=== PATIENT | female | born 1940 | race Caucasian/White ===

== ENCOUNTER 2016-04-16 13:12 | Emergency (ER) | payer MEDICARE, OTHER ==
[~2016-04-16] VITALS: Ht 160 cm; Wt 100.0 kg
[~2016-04-16 13:12] MED LIST: AMOX250C4 PO; ARIP5TAB9 PO; ASPI-1061 PO; CALC-15 PO; CARV6 PO; DIVA250T45 PO; DSS100 PO; LEVO150 PO; OXYB5 PO; PANT40TA25 PO; SIMV-259 PO; THERAGRAN M1 TA1 PO; XALA2.5OS OU
[2016-04-16 14:45] LABS: GLUCOSE, URINE (UA) NEGATIVE (NEGATIVE); KETONES,URINE NEGATIVE (NEGATIVE); LEUKOCYTE ESTERASE ,URINE LARGE (NEGATIVE); OCCULT BLOOD,URINE TRACE (NEGATIVE); PH,URINE 5.5 (5.0-8.0); PROTEIN,URINE NEGATIVE (NEGATIVE)
[2016-04-16 14:54] LABS: APPEARANCE,URINE HAZY (CLEAR)
[2016-04-16 14:55] LABS: RBC,URINE 0-2 /HPF (0-2)
[2016-04-16 14:56] LABS: SQUAMOUS EPITHELIAL CELL,UR Rare /LPF (None Seen)
[2016-04-16 14:58] LABS: BASOPHILS % (AUTO) 0.7 % (0.0-2.0); EOSINOPHILS % (AUTO) 2.1 % (1.0-6.0); HEMATOCRIT 31.2 % (36-46); HEMOGLOBIN 10.7 g/dL (12.0-16.0); LYMPHOCYTES # (AUTO) 1.9 K/uL (1.0-4.8); LYMPHOCYTES % (AUTO) 34.5 % (22.0-44.0); MEAN CORPUSCULAR HEMOGLOBIN 29.7 pg (26.0-34.0); MEAN CORPUSCULAR HGB CONC 34.2 G/dL (31.0-37.0); MEAN CORPUSCULAR VOLUME 87 fL (80-100); MONOCYTES # (AUTO) 0.4 K/uL (0.1-1.0); MONOCYTES % (AUTO) 7.9 % (2.0-9.0); NEUTROPHILS % (AUTO) 54.8 % (40.0-70.0); RED BLOOD CELL COUNT(AUTO) 3.59 MIL/uL (4.00-5.20); RED CELL DISTRIBUTION WIDTH 15.7 % (11.5-14.5); WHITE BLOOD COUNT (AUTO) 5.5 K/uL (4.5-11.0)
[2016-04-16 15:11] LABS: CALCIUM, TOTAL 9.5 mg/dL (8.8-10.5); CREATININE 1.44 mg/dL (0.60-1.30); POTASSIUM 3.8 mmol/L (3.5-5.1)
[2016-04-16 15:14] LABS: BILIRUBIN,TOTAL 0.3 mg/dL (0.1-1.0); TOTAL PROTEIN, SERUM 7.5 g/dL (6.4-8.2)
[2016-04-16 15:20] LABS: PLATELET COUNT (AUTO) 120 K/uL (150-450); RBC MORPHOLOGY COMMENT NORMAL RBC MORPH
[2016-04-16] MEDS ORDERED: CefTRIAXone 1 GM/DEXTROSE 50 ML IV ONE (16:15)
[2016-04-16 18:58] VITALS: BP 150/73
== END 2016-04-16 19:46 | disposition home or self-care (01) ==
LOC: EMS 13:14
DX: N39.0 Urinary tract infection, site not specified (principal); K21.9 Gastro-esophageal reflux disease without esophagitis; E78.00 Pure hypercholesterolemia, unspecified; I10 Essential (primary) hypertension; Z79.82 Long term (current) use of aspirin
CPT/HCPCS: 36415; 80053; 81001; 83690; 84484; 85025; 87077; 87086; 87186; 96365; 99284; J0696

== ENCOUNTER → 2016-06-06 | Outpatient (CLI) | payer MEDICARE, OTHER ==
[~2016-06-06] MED LIST changes: -SIMV-259 PO; +SIMV10 PO
== END | disposition home or self-care (01) ==
LOC: RADMN 13:32
PROVIDERS: ATTEND Internal Medicine Geriatric Medicine
DX: F01.50 Vascular dementia, unspecified severity, without behavioral disturbance, psychotic disturbance, mood disturbance, and anxiety (principal); Z86.73 Personal history of transient ischemic attack (TIA), and cerebral infarction without residual deficits
CPT/HCPCS: 70450

== ENCOUNTER → 2017-02-06 | Outpatient (CLI) | payer MEDICARE, OTHER ==
[~2017-02-06] MED LIST changes: +ARIP5TAB8 PO; -ARIP5TAB9 PO; -ASPI-1061 PO; +ASPI81TA33 PO; +SIMV-259 PO; -SIMV10 PO
[2017-02-06 13:58] LABS: BASOPHILS # (AUTO) 0.01 K/uL (0.00-0.20); BASOPHILS % (AUTO) 0.3 % (0.0-2.0); EOSINOPHILS # (AUTO) 0.14 K/uL (0.00-0.70); EOSINOPHILS % (AUTO) 3.03 % (1.0-6.0); HEMOGLOBIN 11.4 g/dL (12.0-16.0); LYMPHOCYTES # (AUTO) 1.8 K/uL (1.0-4.8); LYMPHOCYTES % (AUTO) 39.9 % (22.0-44.0); MEAN CORPUSCULAR HEMOGLOBIN 29.8 pg (26.0-34.0); MEAN CORPUSCULAR HGB CONC 33.6 G/dL (31.0-37.0); MEAN CORPUSCULAR VOLUME 89 fL (80-100); MONOCYTES # (AUTO) 0.3 K/uL (0.1-1.0); NEUTROPHILS # (AUTO) 2.3 K/uL (1.8-7.7); NEUTROPHILS % (AUTO) 50.9 % (40.0-70.0); PLATELET COUNT (AUTO) 153 K/uL (150-450); RED BLOOD CELL COUNT(AUTO) 3.83 MIL/uL (4.00-5.20); RED CELL DISTRIBUTION WIDTH 16.1 % (11.5-14.5); WHITE BLOOD COUNT (AUTO) 4.6 K/uL (4.5-11.0)
[2017-02-06 14:23] LABS: BILIRUBIN,TOTAL 0.5 mg/dL (0.1-1.0); CALCIUM, TOTAL 9.4 mg/dL (8.8-10.5); CREATININE 1.32 mg/dL (0.60-1.30); POTASSIUM 4.4 mmol/L (3.5-5.1); THYROID STIMULATING HORMONE 1.32 uIU/mL (0.36-3.74)
[2017-02-06 14:36] LABS: HEMOGLOBIN A1C 4.5 % (4.5-6.2)
== END | disposition home or self-care (01) ==
LOC: LABPV 11:07
PROVIDERS: ATTEND Internal Medicine Geriatric Medicine
DX: I63.9 Cerebral infarction, unspecified (principal); E03.9 Hypothyroidism, unspecified; R73.9 Hyperglycemia, unspecified; R26.9 Unspecified abnormalities of gait and mobility
CPT/HCPCS: 83036; 84439; 84443

== ENCOUNTER 2017-06-15 12:13 | Inpatient (IN) | payer MEDICARE, MEDICAID ==
[~2017-06-15] VITALS: Ht 160 cm; Wt 65.3 kg
[~2017-06-15 12:13] MED LIST changes: -ASPI81TA33 PO; +ASPI81TA87 PO
[2017-06-15] MEDS ORDERED: CELE100 PO (14:13)
[2017-06-15] MEDS ORDERED: FURO20 PO (14:14)
[2017-06-15 14:15] LABS: BASOPHILS % (AUTO) 0.5 % (0.0-2.0); EOSINOPHILS % (AUTO) 1.8 % (1.0-6.0); HEMATOCRIT 35.1 % (36-46); HEMOGLOBIN 11.9 g/dL (12.0-16.0); LYMPHOCYTES # (AUTO) 1.9 K/uL (1.0-4.8); LYMPHOCYTES % (AUTO) 32.7 % (22.0-44.0); MEAN CORPUSCULAR HEMOGLOBIN 28.9 pg (26.0-34.0); MEAN CORPUSCULAR HGB CONC 33.9 G/dL (31.0-37.0); MEAN CORPUSCULAR VOLUME 85 fL (80-100); MONOCYTES # (AUTO) 0.5 K/uL (0.1-1.0); MONOCYTES % (AUTO) 8.2 % (2.0-9.0); NEUTROPHILS # (AUTO) 3.4 K/uL (1.8-7.7); NEUTROPHILS % (AUTO) 56.8 % (40.0-70.0); PLATELET COUNT (AUTO) 139 K/uL (150-450); RED BLOOD CELL COUNT(AUTO) 4.11 MIL/uL (4.00-5.20)
[2017-06-15 14:28] LABS: ANION GAP 9 mmol/L (8-16); CALCIUM, TOTAL 9.5 mg/dL (8.8-10.5); CARBON DIOXIDE 30 mmol/L (22-29); CHLORIDE 107 mmol/L (98-107); CREATININE 1.58 mg/dL (0.60-1.30); GLOMERULAR FILTR. RATE CALC 32 mL/min (>60); GLUCOSE,RANDOM 64 mg/dL (70-110); SODIUM SERUM 146 mmol/L (136-145); UREA NITROGEN, BLOOD 30 mg/dL (7-18)
[2017-06-15 14:34] LABS: ALANINE AMINOTRANSFERASE 18 U/L (12-78); ALBUMIN 3.2 g/dL (3.4-5.0); ALKALINE PHOSPHATASE 66 U/L (46-116); ASPARTATE AMINOTRANSFERASE 17 U/L (15-37); BILIRUBIN,TOTAL 0.5 mg/dL (0.1-1.0); TOTAL PROTEIN, SERUM 8.1 g/dL (6.4-8.2); VALPROIC ACID 54 mcg/mL (50-100)
[2017-06-15 14:43] LABS: AMPHET/METH SCREEN,URINE NEGATIVE (NEGATIVE); BARBITURATE SCREEN, URINE NEGATIVE (NEGATIVE); BENZODIAZEPINES SCREEN,URINE NEGATIVE (NEGATIVE); CANNABINOID SCREEN,URINE NEGATIVE (NEGATIVE); COCAINE SCREEN,URINE NEGATIVE (NEGATIVE); METHADONE SCREEN, URINE NEGATIVE (NEGATIVE); OPIATE SCREEN,URINE NEGATIVE (NEGATIVE)
[2017-06-15 14:45] LABS: PHENCYCLIDINE SCREEN,URINE NEGATIVE (NEGATIVE)
[2017-06-15] MEDS ORDERED: HALOPERIDOL 5 MG TABLET PO PRN (16:15)
[2017-06-15] MEDS ORDERED: LORazepam 1 MG TABLET PO PRN (16:15)
[2017-06-15] MEDS ORDERED: ZOLPIDEM TARTRATE 10 MG TABLET PO PRN (16:15)
[2017-06-15] MEDS ORDERED: INFLUENZA VIRUS VACCINE QVS 2017-18 (3YR+)/PF 60 MCG/0.5 ML SYRINGE IM ONE (18:15)
[2017-06-15] MEDS ORDERED: PNEUMOCOCCAL VACCINE POLYVALENT 0.5 ML VIAL [PPSV23] IM ONE (18:15)
[2017-06-15 19:02] VITALS: BP 148/60
[2017-06-15] MEDS: SIMVASTATIN 10 MG TABLET PO SCH (21:00)
[2017-06-15] MEDS: LATANOPROST 0.005% 2.5 ML OPHTHALMIC SOLUTION OU SCH (21:00)
[2017-06-16 01:36] VITALS: BP 134/101
[2017-06-16] MEDS: LEVOTHYROXINE SODIUM 150 MCG TABLET PO SCH (06:01)
[2017-06-16 06:34] LABS: CHOL/HDL RATIO 2.9 (3.9-5.7)
[2017-06-16 08:00] VITALS: BP 118/71
[2017-06-16] MEDS: CALCIUM OYSTER SHELL 500 MG TABLET PO SCH (08:06)
[2017-06-16] MEDS: OXYBUTYNIN CHLORIDE 5 MG TABLET PO SCH (08:06)
[2017-06-16] MEDS: ASPIRIN 81 MG EC TABLET PO SCH (08:06)
[2017-06-16] MEDS: CARVEDILOL 6.25 MG TABLET PO SCH ×2 (08:06→16:24)
[2017-06-16] MEDS: FUROSEMIDE 20 MG TABLET PO SCH ×2 (08:06→16:24)
[2017-06-16] MEDS: PANTOPRAZOLE SODIUM 40 MG DR TABLET PO SCH (08:07)
[2017-06-16] MEDS: CELECOXIB 100 MG CAPSULE PO SCH ×2 (08:07→16:24)
[2017-06-16] MEDS: MULTIVITAMINS WITH MINERALS, THERAPEUTIC TABLET PO SCH (08:07)
[2017-06-16] MEDS: DOCUSATE SODIUM 100 MG CAPSULE PO SCH ×2 (08:08→16:24)
[2017-06-16] MEDS: MAALOX/LIDOCAINE/NYSTATIN SUSP 5 ML ORAL.SYG PO SCH (12:15)
[2017-06-16] MEDS: RisperiDONE 0.5 MG TABLET PO SCH (16:28)
[2017-06-16] MEDS: LATANOPROST 0.005% 2.5 ML OPHTHALMIC SOLUTION OU SCH (20:03)
[2017-06-16] MEDS: SIMVASTATIN 10 MG TABLET PO SCH (20:03)
[2017-06-16] MEDS ORDERED: DONEPEZIL HCL 5 MG TABLET PO SCH (21:00)
[2017-06-16 23:40] VITALS: BP 129/79
[2017-06-17 06:20] VITALS: BP 140/71
[2017-06-17] MEDS: LEVOTHYROXINE SODIUM 150 MCG TABLET PO SCH (06:41)
[2017-06-17 08:00] VITALS: BP 138/95
[2017-06-17] MEDS ORDERED: ONDANSETRON HCL 4 MG TABLET PO PRN (09:30)
[2017-06-17] MEDS: CARVEDILOL 6.25 MG TABLET PO SCH ×2 (09:32→16:42)
[2017-06-17] MEDS: CELECOXIB 100 MG CAPSULE PO SCH ×2 (09:32→16:41)
[2017-06-17] MEDS: DOCUSATE SODIUM 100 MG CAPSULE PO SCH ×2 (09:32→16:40)
[2017-06-17] MEDS: OXYBUTYNIN CHLORIDE 5 MG TABLET PO SCH (09:33)
[2017-06-17] MEDS: FUROSEMIDE 20 MG TABLET PO SCH ×2 (09:33→16:42)
[2017-06-17] MEDS: PANTOPRAZOLE SODIUM 40 MG DR TABLET PO SCH (09:33)
[2017-06-17] MEDS: ASPIRIN 81 MG EC TABLET PO SCH (09:33)
[2017-06-17] MEDS: MULTIVITAMINS WITH MINERALS, THERAPEUTIC TABLET PO SCH (09:33)
[2017-06-17] MEDS: RisperiDONE 0.5 MG TABLET PO SCH ×2 (09:33→16:42)
[2017-06-17] MEDS: CALCIUM OYSTER SHELL 500 MG TABLET PO SCH (09:33)
[2017-06-17] MEDS: MAALOX/LIDOCAINE/NYSTATIN SUSP 5 ML ORAL.SYG PO SCH (09:34)
[2017-06-17 10:42] LABS: VITAMIN B12 LEVEL 1866 pg/mL (211-911)
[2017-06-17 10:47] LABS: FOLATE SERUM > 24.0 ng/mL (5.4-)
[2017-06-17] MEDS: SIMVASTATIN 10 MG TABLET PO SCH (20:35)
[2017-06-17] MEDS: LATANOPROST 0.005% 2.5 ML OPHTHALMIC SOLUTION OU SCH (20:36)
[2017-06-17] MEDS: DONEPEZIL HCL 10 MG TABLET PO SCH (20:36)
[2017-06-17 23:37] VITALS: BP 109/74
[2017-06-18] MEDS: LEVOTHYROXINE SODIUM 150 MCG TABLET PO SCH (06:47)
[2017-06-18] MEDS: DOCUSATE SODIUM 100 MG CAPSULE PO SCH ×2 (08:30→17:00)
[2017-06-18] MEDS: MULTIVITAMINS WITH MINERALS, THERAPEUTIC TABLET PO SCH (08:30)
[2017-06-18] MEDS: CARVEDILOL 6.25 MG TABLET PO SCH ×2 (08:31→17:00)
[2017-06-18] MEDS: CELECOXIB 100 MG CAPSULE PO SCH ×2 (08:31→17:00)
[2017-06-18] MEDS: PANTOPRAZOLE SODIUM 40 MG DR TABLET PO SCH (08:31)
[2017-06-18] MEDS: OXYBUTYNIN CHLORIDE 5 MG TABLET PO SCH (08:32)
[2017-06-18] MEDS: FUROSEMIDE 20 MG TABLET PO SCH ×2 (08:32→17:00)
[2017-06-18] MEDS: CALCIUM OYSTER SHELL 500 MG TABLET PO SCH (08:33)
[2017-06-18] MEDS: ASPIRIN 81 MG EC TABLET PO SCH (08:33)
[2017-06-18] MEDS: MAALOX/LIDOCAINE/NYSTATIN SUSP 5 ML ORAL.SYG PO SCH (08:34)
[2017-06-18] MEDS: RisperiDONE 0.5 MG TABLET PO SCH ×2 (08:37→17:00)
[2017-06-18 08:40] VITALS: BP 125/93
[2017-06-18 17:30] VITALS: BP 128/92
[2017-06-18] MEDS: DONEPEZIL HCL 10 MG TABLET PO SCH ×2 (20:03→20:08)
[2017-06-18] MEDS: SIMVASTATIN 10 MG TABLET PO SCH (20:03)
[2017-06-18] MEDS: LATANOPROST 0.005% 2.5 ML OPHTHALMIC SOLUTION OU SCH ×2 (20:03→20:08)
[2017-06-19] MEDS: LEVOTHYROXINE SODIUM 150 MCG TABLET PO SCH (07:01)
[2017-06-19 08:15] VITALS: BP 149/97
[2017-06-19 09:00] LABS: CREATININE 1.75 mg/dL (0.60-1.30); FREE T4 (FREE THYROXINE) 1.35 ng/dL (0.76-1.46); POTASSIUM 3.4 mmol/L (3.5-5.1)
[2017-06-19] MEDS: PANTOPRAZOLE SODIUM 40 MG DR TABLET PO SCH (09:00)
[2017-06-19] MEDS: CALCIUM OYSTER SHELL 500 MG TABLET PO SCH (09:00)
[2017-06-19] MEDS: MULTIVITAMINS WITH MINERALS, THERAPEUTIC TABLET PO SCH (09:00)
[2017-06-19] MEDS: ASPIRIN 81 MG EC TABLET PO SCH (09:00)
[2017-06-19] MEDS: RisperiDONE 0.5 MG TABLET PO SCH ×2 (09:00→16:11)
[2017-06-19] MEDS: OXYBUTYNIN CHLORIDE 5 MG TABLET PO SCH (09:00)
[2017-06-19] MEDS: CELECOXIB 100 MG CAPSULE PO SCH ×2 (09:00→16:12)
[2017-06-19] MEDS: MAALOX/LIDOCAINE/NYSTATIN SUSP 5 ML ORAL.SYG PO SCH (09:00)
[2017-06-19] MEDS: DOCUSATE SODIUM 100 MG CAPSULE PO SCH ×2 (09:00→16:11)
[2017-06-19] MEDS: CARVEDILOL 6.25 MG TABLET PO SCH ×2 (09:00→16:11)
[2017-06-19] MEDS: FUROSEMIDE 20 MG TABLET PO SCH ×2 (09:00→16:11)
[2017-06-19] MEDS ORDERED: POTASSIUM CHLORIDE 10 MEQ ER TABLET PO ONE (14:15)
[2017-06-19 17:00] VITALS: BP 161/98
[2017-06-19] MEDS ORDERED: POTASSIUM CHLORIDE 20 MEQ ER TABLET PO ONE (18:45)
[2017-06-20 02:34] VITALS: BP 139/61
[2017-06-20] MEDS: LEVOTHYROXINE SODIUM 150 MCG TABLET PO SCH (06:54)
[2017-06-20] MEDS: PANTOPRAZOLE SODIUM 40 MG DR TABLET PO SCH ×2 (08:38→09:00)
[2017-06-20] MEDS: MULTIVITAMINS WITH MINERALS, THERAPEUTIC TABLET PO SCH ×2 (08:38→09:00)
[2017-06-20] MEDS: DOCUSATE SODIUM 100 MG CAPSULE PO SCH ×2 (08:38→17:00)
[2017-06-20] MEDS: CALCIUM OYSTER SHELL 500 MG TABLET PO SCH ×2 (08:39→09:00)
[2017-06-20] MEDS: CARVEDILOL 6.25 MG TABLET PO SCH ×3 (08:39→17:00)
[2017-06-20] MEDS: FUROSEMIDE 20 MG TABLET PO SCH ×3 (08:39→17:00)
[2017-06-20] MEDS: RisperiDONE 0.5 MG TABLET PO SCH ×3 (08:39→17:00)
[2017-06-20] MEDS: OXYBUTYNIN CHLORIDE 5 MG TABLET PO SCH ×2 (08:39→09:00)
[2017-06-20] MEDS: CELECOXIB 100 MG CAPSULE PO SCH ×3 (08:40→17:00)
[2017-06-20] MEDS: ASPIRIN 81 MG EC TABLET PO SCH ×2 (08:41→09:00)
[2017-06-20] MEDS: MAALOX/LIDOCAINE/NYSTATIN SUSP 5 ML ORAL.SYG PO SCH ×2 (08:42→09:00)
[2017-06-20] MEDS: LATANOPROST 0.005% 2.5 ML OPHTHALMIC SOLUTION OU SCH (20:44)
[2017-06-20] MEDS: SIMVASTATIN 10 MG TABLET PO SCH (20:49)
[2017-06-20] MEDS: DONEPEZIL HCL 10 MG TABLET PO SCH (20:49)
[2017-06-21] MEDS: LEVOTHYROXINE SODIUM 150 MCG TABLET PO SCH (06:57)
[2017-06-21] MEDS: DOCUSATE SODIUM 100 MG CAPSULE PO SCH ×2 (08:24→16:33)
[2017-06-21] MEDS: PANTOPRAZOLE SODIUM 40 MG DR TABLET PO SCH (08:24)
[2017-06-21] MEDS: OXYBUTYNIN CHLORIDE 5 MG TABLET PO SCH (08:24)
[2017-06-21] MEDS: MULTIVITAMINS WITH MINERALS, THERAPEUTIC TABLET PO SCH (08:24)
[2017-06-21] MEDS: CALCIUM OYSTER SHELL 500 MG TABLET PO SCH (08:24)
[2017-06-21] MEDS: CELECOXIB 100 MG CAPSULE PO SCH ×2 (08:25→16:31)
[2017-06-21] MEDS: FUROSEMIDE 20 MG TABLET PO SCH ×2 (08:25→16:31)
[2017-06-21] MEDS: RisperiDONE 0.5 MG TABLET PO SCH ×2 (08:25→16:31)
[2017-06-21] MEDS: CARVEDILOL 6.25 MG TABLET PO SCH ×2 (08:25→16:31)
[2017-06-21] MEDS: ASPIRIN 81 MG EC TABLET PO SCH (08:25)
[2017-06-21] MEDS: MAALOX/LIDOCAINE/NYSTATIN SUSP 5 ML ORAL.SYG PO SCH (09:13)
[2017-06-21 09:58] VITALS: BP 157/76
[2017-06-21 17:23] VITALS: BP 147/72
[2017-06-21] MEDS: DONEPEZIL HCL 10 MG TABLET PO SCH (20:11)
[2017-06-21] MEDS: LATANOPROST 0.005% 2.5 ML OPHTHALMIC SOLUTION OU SCH (20:11)
[2017-06-21] MEDS: SIMVASTATIN 10 MG TABLET PO SCH (20:11)
[2017-06-22] MEDS: LEVOTHYROXINE SODIUM 150 MCG TABLET PO SCH ×2 (06:32→06:52)
[2017-06-22 08:35] VITALS: BP 148/87
[2017-06-22] MEDS: PANTOPRAZOLE SODIUM 40 MG DR TABLET PO SCH (09:51)
[2017-06-22] MEDS: MULTIVITAMINS WITH MINERALS, THERAPEUTIC TABLET PO SCH (09:51)
[2017-06-22] MEDS: OXYBUTYNIN CHLORIDE 5 MG TABLET PO SCH (09:51)
[2017-06-22] MEDS: CELECOXIB 100 MG CAPSULE PO SCH ×2 (09:53→17:00)
[2017-06-22] MEDS: RisperiDONE 0.5 MG TABLET PO SCH ×2 (09:54→17:00)
[2017-06-22] MEDS: DOCUSATE SODIUM 100 MG CAPSULE PO SCH ×2 (09:54→17:00)
[2017-06-22] MEDS: FUROSEMIDE 20 MG TABLET PO SCH ×2 (09:54→17:00)
[2017-06-22] MEDS: ASPIRIN 81 MG EC TABLET PO SCH (09:54)
[2017-06-22] MEDS: CALCIUM OYSTER SHELL 500 MG TABLET PO SCH (09:54)
[2017-06-22] MEDS: CARVEDILOL 6.25 MG TABLET PO SCH ×2 (09:57→17:00)
[2017-06-22] MEDS: SERTRALINE HCL 50 MG TABLET PO SCH (09:58)
[2017-06-22] MEDS: MAALOX/LIDOCAINE/NYSTATIN SUSP 5 ML ORAL.SYG PO SCH (09:59)
[2017-06-22] MEDS ORDERED: DSS100 PO (16:25)
[2017-06-22] MEDS ORDERED: CARV6 PO (16:26)
[2017-06-22] MEDS ORDERED: FURO20 PO (16:26)
[2017-06-22] MEDS ORDERED: XALA2.5OS OU (16:28)
[2017-06-22] MEDS ORDERED: DONE10TA8 PO (16:29)
[2017-06-22] MEDS ORDERED: SIMV-259 PO (16:29)
[2017-06-22] MEDS ORDERED: LEVO150 PO (16:30)
[2017-06-22] MEDS ORDERED: OXYB5 PO (16:31)
[2017-06-22] MEDS ORDERED: ASPI-1146 PO (16:32)
[2017-06-22] MEDS ORDERED: PANT40TA25 PO (16:34)
[2017-06-22] MEDS ORDERED: OS500 PO (16:34)
[2017-06-22] MEDS ORDERED: MULT-1239 PO (16:35)
[2017-06-22] MEDS ORDERED: CELE100 PO (16:36)
[2017-06-22] MEDS ORDERED: MAGIC5L PO (16:36)
[2017-06-22] MEDS ORDERED: SERT50TA12 PO (16:48)
[2017-06-22] MEDS ORDERED: RISP.5 PO (16:49)
[2017-06-22 18:21] VITALS: BP 151/82
[2017-06-22] MEDS: DONEPEZIL HCL 10 MG TABLET PO SCH (21:00)
[2017-06-22] MEDS: SIMVASTATIN 10 MG TABLET PO SCH (21:00)
[2017-06-22] MEDS: LATANOPROST 0.005% 2.5 ML OPHTHALMIC SOLUTION OU SCH (21:00)
[2017-06-23 01:00] VITALS: BP 124/93
[2017-06-23] MEDS: LEVOTHYROXINE SODIUM 150 MCG TABLET PO SCH (07:00)
[2017-06-23] MEDS: CARVEDILOL 6.25 MG TABLET PO SCH ×2 (09:00→17:00)
[2017-06-23] MEDS: DOCUSATE SODIUM 100 MG CAPSULE PO SCH ×2 (09:00→17:00)
[2017-06-23] MEDS: RisperiDONE 0.5 MG TABLET PO SCH ×2 (09:00→17:00)
[2017-06-23] MEDS: PANTOPRAZOLE SODIUM 40 MG DR TABLET PO SCH (09:00)
[2017-06-23] MEDS: ASPIRIN 81 MG EC TABLET PO SCH (09:00)
[2017-06-23] MEDS: OXYBUTYNIN CHLORIDE 5 MG TABLET PO SCH (09:00)
[2017-06-23] MEDS: SERTRALINE HCL 50 MG TABLET PO SCH (09:00)
[2017-06-23] MEDS: MULTIVITAMINS WITH MINERALS, THERAPEUTIC TABLET PO SCH (09:00)
[2017-06-23] MEDS: CELECOXIB 100 MG CAPSULE PO SCH ×2 (09:00→17:00)
[2017-06-23] MEDS: FUROSEMIDE 20 MG TABLET PO SCH ×2 (09:00→17:00)
[2017-06-23] MEDS: CALCIUM OYSTER SHELL 500 MG TABLET PO SCH (09:00)
[2017-06-23 19:18] VITALS: BP 132/80
[2017-06-23] MEDS: SIMVASTATIN 10 MG TABLET PO SCH (20:48)
[2017-06-23] MEDS: DONEPEZIL HCL 10 MG TABLET PO SCH (20:48)
[2017-06-23] MEDS: LATANOPROST 0.005% 2.5 ML OPHTHALMIC SOLUTION OU SCH (20:49)
[2017-06-24 04:29] VITALS: BP 153/98
[2017-06-24] MEDS: LEVOTHYROXINE SODIUM 150 MCG TABLET PO SCH (07:00)
[2017-06-24] MEDS: RisperiDONE 0.5 MG TABLET PO SCH ×2 (08:56→16:26)
[2017-06-24] MEDS: DOCUSATE SODIUM 100 MG CAPSULE PO SCH ×2 (08:56→16:26)
[2017-06-24] MEDS: SERTRALINE HCL 50 MG TABLET PO SCH (08:57)
[2017-06-24] MEDS: MULTIVITAMINS WITH MINERALS, THERAPEUTIC TABLET PO SCH (08:58)
[2017-06-24] MEDS: CARVEDILOL 6.25 MG TABLET PO SCH ×2 (08:59→16:26)
[2017-06-24] MEDS: FUROSEMIDE 20 MG TABLET PO SCH ×2 (08:59→16:26)
[2017-06-24] MEDS: MAALOX/LIDOCAINE/NYSTATIN SUSP 5 ML ORAL.SYG PO SCH (08:59)
[2017-06-24] MEDS: ASPIRIN 81 MG EC TABLET PO SCH (08:59)
[2017-06-24] MEDS: PANTOPRAZOLE SODIUM 40 MG DR TABLET PO SCH (08:59)
[2017-06-24] MEDS: CELECOXIB 100 MG CAPSULE PO SCH ×2 (08:59→16:26)
[2017-06-24] MEDS: CALCIUM OYSTER SHELL 500 MG TABLET PO SCH (08:59)
[2017-06-24] MEDS: OXYBUTYNIN CHLORIDE 5 MG TABLET PO SCH (08:59)
[2017-06-24 09:49] VITALS: BP 153/100
[2017-06-24 19:24] VITALS: BP 148/77
[2017-06-24] MEDS: DONEPEZIL HCL 10 MG TABLET PO SCH (23:07)
[2017-06-24] MEDS: SIMVASTATIN 10 MG TABLET PO SCH (23:07)
[2017-06-24] MEDS: LATANOPROST 0.005% 2.5 ML OPHTHALMIC SOLUTION OU SCH (23:07)
[2017-06-25] MEDS: LEVOTHYROXINE SODIUM 150 MCG TABLET PO SCH (06:30)
[2017-06-25 07:06] LABS: BASOPHILS % (AUTO) 0.5 % (0.0-2.0); EOSINOPHILS % (AUTO) 3.8 % (1.0-6.0); HEMATOCRIT 32.7 % (36-46); HEMOGLOBIN 11.4 g/dL (12.0-16.0); LYMPHOCYTES # (AUTO) 1.9 K/uL (1.0-4.8); LYMPHOCYTES % (AUTO) 29.3 % (22.0-44.0); MEAN CORPUSCULAR HEMOGLOBIN 29.9 pg (26.0-34.0); MEAN CORPUSCULAR HGB CONC 34.9 G/dL (31.0-37.0); MEAN CORPUSCULAR VOLUME 86 fL (80-100); MONOCYTES # (AUTO) 0.6 K/uL (0.1-1.0); NEUTROPHILS # (AUTO) 3.7 K/uL (1.8-7.7); NEUTROPHILS % (AUTO) 57.4 % (40.0-70.0); PLATELET COUNT (AUTO) 194 K/uL (150-450); RED BLOOD CELL COUNT(AUTO) 3.82 MIL/uL (4.00-5.20); RED CELL DISTRIBUTION WIDTH 16.2 % (11.5-14.5)
[2017-06-25 07:27] LABS: ALBUMIN 2.9 g/dL (3.4-5.0); BILIRUBIN,TOTAL 0.6 mg/dL (0.1-1.0); CALCIUM, TOTAL 9.6 mg/dL (8.8-10.5); POTASSIUM 4.6 mmol/L (3.5-5.1); TOTAL PROTEIN, SERUM 7.1 g/dL (6.4-8.2)
[2017-06-25 08:45] VITALS: BP 148/69
[2017-06-25] MEDS: CARVEDILOL 6.25 MG TABLET PO SCH (09:00)
[2017-06-25] MEDS: FUROSEMIDE 20 MG TABLET PO SCH (09:00)
[2017-06-25] MEDS: CELECOXIB 100 MG CAPSULE PO SCH (09:00)
[2017-06-25] MEDS: OXYBUTYNIN CHLORIDE 5 MG TABLET PO SCH (09:00)
[2017-06-25] MEDS: SERTRALINE HCL 50 MG TABLET PO SCH (09:00)
[2017-06-25] MEDS: PANTOPRAZOLE SODIUM 40 MG DR TABLET PO SCH (09:00)
[2017-06-25] MEDS: CALCIUM OYSTER SHELL 500 MG TABLET PO SCH (09:00)
[2017-06-25] MEDS: ASPIRIN 81 MG EC TABLET PO SCH (09:00)
[2017-06-25] MEDS: MULTIVITAMINS WITH MINERALS, THERAPEUTIC TABLET PO SCH (09:00)
[2017-06-25] MEDS: RisperiDONE 0.5 MG TABLET PO SCH (09:00)
[2017-06-25] MEDS: MAALOX/LIDOCAINE/NYSTATIN SUSP 5 ML ORAL.SYG PO SCH (09:00)
[2017-06-25] MEDS: DOCUSATE SODIUM 100 MG CAPSULE PO SCH (09:00)
== END 2017-06-25 18:00 | disposition home or self-care (01) | DRG 885 ==
LOC: EMS 12:15 → EEVIPCON 12:15 → 3EX 17:01
PROVIDERS: ADMIT Psychiatry & Neurology Psychiatry; ATTEND Psychiatry & Neurology Psychiatry
DX: F29 Unspecified psychosis not due to a substance or known physiological condition (principal); B37.0 Candidal stomatitis; E87.0 Hyperosmolality and hypernatremia; I50.9 Heart failure, unspecified; I11.0 Hypertensive heart disease with heart failure; R45.851 Suicidal ideations; G30.9 Alzheimer's disease, unspecified; F02.80 Dementia in other diseases classified elsewhere, unspecified severity, without behavioral disturbance, psychotic disturbance, mood disturbance, and anxiety; K59.00 Constipation, unspecified; K21.9 Gastro-esophageal reflux disease without esophagitis; E03.9 Hypothyroidism, unspecified; E78.5 Hyperlipidemia, unspecified; M19.90 Unspecified osteoarthritis, unspecified site; R32 Unspecified urinary incontinence; D64.9 Anemia, unspecified; E86.0 Dehydration; Z68.25 Body mass index [BMI] 25.0-25.9, adult; F31.9 Bipolar disorder, unspecified; Z86.73 Personal history of transient ischemic attack (TIA), and cerebral infarction without residual deficits; Z90.710 Acquired absence of both cervix and uterus; Z91.19 Patient's noncompliance with other medical treatment and regimen; Z79.899 Other long term (current) drug therapy; Z79.82 Long term (current) use of aspirin
CPT/HCPCS: 82607; 82746; 84439; 84443; 99285; G0480

== ENCOUNTER 2017-07-18 16:50 | Emergency (ER) | payer MEDICARE, OTHER ==
[~2017-07-18] VITALS: Ht 160 cm; Wt 68.2 kg
[~2017-07-18 16:50] MED LIST changes: -AMOX250C4 PO; -ARIP5TAB8 PO; +ASPI-1146 PO; -ASPI81TA87 PO; -CALC-15 PO; +CELE100 PO; -DIVA250T45 PO; +DONE10TA8 PO; +FURO20 PO; +MAGIC5L PO; +MULT-1239 PO; +OS500 PO; +RISP.5 PO; +SERT50TA12 PO; -THERAGRAN M1 TA1 PO
[2017-07-18] MEDS ORDERED: RISP1 PO (18:40)
[2017-07-18 19:36] LABS: BASOPHILS % (AUTO) 0.5 % (0.0-2.0); HEMATOCRIT 40.7 % (36-46); HEMOGLOBIN 14.1 g/dL (12.0-16.0); LYMPHOCYTES # (AUTO) 1.6 K/uL (1.0-4.8); LYMPHOCYTES % (AUTO) 28.4 % (22.0-44.0); MEAN CORPUSCULAR HEMOGLOBIN 29.3 pg (26.0-34.0); MEAN CORPUSCULAR HGB CONC 34.7 G/dL (31.0-37.0); MEAN CORPUSCULAR VOLUME 84 fL (80-100); MONOCYTES # (AUTO) 0.4 K/uL (0.1-1.0); NEUTROPHILS # (AUTO) 3.7 K/uL (1.8-7.7); NEUTROPHILS % (AUTO) 63.1 % (40.0-70.0); PLATELET COUNT (AUTO) 203 K/uL (150-450); RED BLOOD CELL COUNT(AUTO) 4.82 MIL/uL (4.00-5.20); RED CELL DISTRIBUTION WIDTH 15.6 % (11.5-14.5)
[2017-07-18 20:10] LABS: ANION GAP 18 mmol/L (8-16); CALCIUM, TOTAL 10.2 mg/dL (8.8-10.5); CARBON DIOXIDE 25 mmol/L (22-29); CHLORIDE 104 mmol/L (98-107); CREATININE 1.74 mg/dL (0.60-1.30); GLOMERULAR FILTR. RATE CALC 28 mL/min (>60); GLUCOSE,RANDOM 93 mg/dL (70-110); POTASSIUM 3.5 mmol/L (3.5-5.1); SODIUM SERUM 147 mmol/L (136-145); UREA NITROGEN, BLOOD 39 mg/dL (7-18)
[2017-07-18 20:17] LABS: ALANINE AMINOTRANSFERASE 16 U/L (12-78); ALBUMIN 3.3 g/dL (3.4-5.0); ALKALINE PHOSPHATASE 82 U/L (46-116); ASPARTATE AMINOTRANSFERASE 20 U/L (15-37); BILIRUBIN,TOTAL 0.9 mg/dL (0.1-1.0); TOTAL PROTEIN, SERUM 8.1 g/dL (6.4-8.2)
[2017-07-18 21:28] VITALS: BP 138/82
== END 2017-07-18 21:45 | disposition home or self-care (01) ==
LOC: EMS 16:51
DX: R45.4 Irritability and anger (principal); E03.9 Hypothyroidism, unspecified; E78.00 Pure hypercholesterolemia, unspecified; F31.9 Bipolar disorder, unspecified; I10 Essential (primary) hypertension; K21.9 Gastro-esophageal reflux disease without esophagitis; M19.90 Unspecified osteoarthritis, unspecified site; Z79.82 Long term (current) use of aspirin; Z86.73 Personal history of transient ischemic attack (TIA), and cerebral infarction without residual deficits; Z90.710 Acquired absence of both cervix and uterus
CPT/HCPCS: 36415; 80053; 85025; 99284; G0480